=== PATIENT | male | born 1980 | race Two or more races ===

== ENCOUNTER 2023-01-06 17:10 | Emergency (ER) | payer OTHER ==
[~2023-01-06] VITALS: Ht 177.8 cm; Wt 88.5 kg
== END 2023-01-06 23:43 | disposition home or self-care (01) ==
LOC: ER 17:10
DX: H60.01 Abscess of right external ear (principal); Z88.6 Allergy status to analgesic agent

== ENCOUNTER 2023-03-06 11:00 | Day surgery (SDC) | payer OTHER ==
[~2023-03-06 11:00] MED LIST: PAXIL20 MG PO
[2023-03-06] MEDS ORDERED: TYLENOL ARTHRI650 MG PO (14:25)
[2023-03-06] MEDS ORDERED: MIRALAX17 GM PO (14:25)
[2023-03-06] MEDS ORDERED: TRAMADOL HCL50 MG PO (14:25)
== END 2023-03-06 17:35 | disposition home or self-care (01) ==
LOC: CIR.AMB 11:00
PROVIDERS: ATTEND Surgery
DX: K42.0 Umbilical hernia with obstruction, without gangrene (principal); I10 Essential (primary) hypertension; Z20.822 Contact with and (suspected) exposure to COVID-19; Z88.6 Allergy status to analgesic agent; Z91.013 Allergy to seafood